=== PATIENT | male | born 1950 | race Caucasian/White ===

== ENCOUNTER 2019-12-18 03:36 | Emergency (ER) | payer MEDICARE, OTHER ==
[~2019-12-18] VITALS: Ht 180.3 cm; Wt 149.7 kg
[~2019-12-18 03:36] MED LIST: ALLERGY RELIEF PO; ALLO300 PO; AMLO5 PO; ASPI81CH PO; ATOR80 PO; Aspirin EC81 MG PO; CLOP75 PO; GLIP10ER PO; GLUCOPHAGE PO; Humulin N100 UNIT/1 SC; Hydrocodone-Ap1 EA20 PO; IBUP800 PO; LAMO100 PO; LAMOTRIGINE PO; LISI20 PO; LIVALO2 MG PO; LOSA50 PO; METFORMIN PO; METO25 PO; NOVOLIN N SC; OMEPRAZOLE MAGN20 MG PO; Omeprazole20 M1 PO; PANT40 PO; SILD50TA PO; SILDENAFIL PO; TAMS.4ER PO; [UNRECOGNIZED DRUG - OTHER] PO
[2019-12-18 04:09] LABS: BASOPHILS ABSOLUTE AUTO 0.07 K/mm3 (0.00-0.23); BASOPHILS PERCENT AUTO 1 % (0-2); EOSINOPHILS ABSOLUTE AUTO 0.22 K/mm3 (0.00-0.68); EOSINOPHILS PERCENT AUTO 3 % (0-6); Hematocrit 44.7 % (37.0-53.0); Hemoglobin 15.6 g/dL (13.5-17.5); IMMATURE GRAN ABSOLUTE AUTO 0.03 K/mm3 (0.00-0.10); IMMATURE GRAN PERCENT AUTO 0 % (0-1); LYMPHOCYTES ABSOLUTE AUTO 2.07 K/mm3 (0.84-5.20); LYMPHOCYTES PERCENT AUTO 31 % (21-46); MONOCYTES ABSOLUTE AUTO 0.67 K/mm3 (0.16-1.47); MONOCYTES PERCENT AUTO 10 % (4-13); Mean Corpuscular HGB 30.6 pg (26.0-34.0); Mean Corpuscular HGB Conc 34.9 g/dL (31.5-36.5); Mean Corpuscular Volume 88 fL (80-100); Mean Platelet Volume 10.5 fL (9.1-12.4); NEUTROPHILS ABSOLUTE AUTO 3.73 K/mm3 (1.96-9.15); NEUTROPHILS PERCENT AUTO 55 % (41-73); Platelet Count 217 K/mm3 (150-400); RDW Coefficient Variation 13.5 % (11.7-14.2); RDW Standard Deviation 43.4 fL (35.1-46.3); Red Blood Cell Count 5.09 M/mm3 (4.30-5.90); White Blood Cell Count 6.79 K/mm3 (4.00-11.30)
[2019-12-18 04:26] LABS: Alanine Aminotransfer (ALT/SGP 20 U/L (12-78); Albumin, Blood 3.3 g/dL (3.4-5.0); Alk Phos 119 U/L (50-136); Anion Gap 7 mmol/L (6-16); Aspartate Aminotrans (AST/SGOT 14 U/L (12-37); Bilirubin, Total 0.9 mg/dL (0.1-1.0); Blood Urea Nitrogen 11 mg/dL (8-24); Bun/Creatinine Ratio 17.5 (12.0-20.0); CO2, Blood 27 mmol/L (21-32); Calcium, Blood 8.7 mg/dL (8.5-10.1); Chloride, Blood 107 mmol/L (98-108); Creatinine, Blood 0.63 mg/dL (0.60-1.20); Globulin, Blood 3.4 g/dL (2.2-4.0); Glomerular Filtration Rate >60 (60-); Glucose, Blood 315 mg/dL (70-99); Potassium, Blood 4.1 mmol/L (3.5-5.5); Sodium, Blood 141 mmol/L (136-145); Total Protein, Blood 6.7 g/dL (6.4-8.2)
== END 2019-12-18 05:46 | disposition short-term general hospital (02) ==
LOC: ER 03:36
PROVIDERS: Emergency Medicine
DX: M97.12XA Periprosthetic fracture around internal prosthetic left knee joint, initial encounter (principal); I10 Essential (primary) hypertension; Z88.1 Allergy status to other antibiotic agents; Z88.8 Allergy status to other drugs, medicaments and biological substances; Z91.040 Latex allergy status; Z79.899 Other long term (current) drug therapy; Z79.82 Long term (current) use of aspirin; Z79.02 Long term (current) use of antithrombotics/antiplatelets; W18.30XA Fall on same level, unspecified, initial encounter
CPT/HCPCS: 29505; 51702; 71045; 73560-LT; 73706; 80053; 85025; 93005; 93010; 96361-59; 96374-59; 96375-59; 99285-25; J1170; J2250; J2405; J3010; J7030; Q9967

== ENCOUNTER 2020-02-24 13:10 | Emergency (ER) | payer MEDICARE, OTHER ==
[~2020-02-24] VITALS: Ht 180.3 cm; Wt 140.6 kg
[2020-02-24] MEDS ORDERED: PANT20 PO (13:26)
[2020-02-24] MEDS ORDERED: ATOR20 PO (13:27)
[2020-02-24] MEDS ORDERED: Roxicodone5 MG PO (17:08)
== END 2020-02-24 18:14 | disposition home or self-care (01) ==
LOC: ER 13:10
DX: M97.12XA Periprosthetic fracture around internal prosthetic left knee joint, initial encounter (principal); M79.605 Pain in left leg; I10 Essential (primary) hypertension; I25.2 Old myocardial infarction; M10.9 Gout, unspecified; Z91.040 Latex allergy status; Z88.8 Allergy status to other drugs, medicaments and biological substances; Z79.82 Long term (current) use of aspirin
CPT/HCPCS: 73552; 73562-LT; 93971; 99284-25

== ENCOUNTER 2020-05-25 09:28 | Emergency (ER) | payer MEDICARE, OTHER ==
[~2020-05-25] VITALS: Ht 180.3 cm; Wt 144.2 kg
[~2020-05-25 09:28] MED LIST changes: +ATOR20 PO; +PANT20 PO; +Roxicodone5 MG PO
[2020-05-25] MEDS ORDERED: METO25ER PO (10:56)
[2020-05-25] MEDS ORDERED: METF500 PO (10:57)
[2020-05-25 11:34] LABS: Influenza A Negative (NEGATIVE); Influenza B Negative (NEGATIVE)
[2020-05-25] MEDS ORDERED: AMOCLA875 PO (13:40)
[2020-05-25] MEDS ORDERED: AZIT250 PO (13:40)
== END 2020-05-25 14:14 | disposition home or self-care (01) ==
LOC: ER 09:28
PROVIDERS: Physician Assistant
DX: U07.1 COVID-19 (principal); J12.89 Other viral pneumonia; I10 Essential (primary) hypertension; I25.2 Old myocardial infarction; Z79.899 Other long term (current) drug therapy; Z79.02 Long term (current) use of antithrombotics/antiplatelets; Z79.82 Long term (current) use of aspirin; Z79.4 Long term (current) use of insulin; Z88.8 Allergy status to other drugs, medicaments and biological substances; Z91.040 Latex allergy status; Z88.1 Allergy status to other antibiotic agents
CPT/HCPCS: 71045; 87804; 96365; 99284-25; J0696; U0003

== ENCOUNTER 2020-06-25 10:42 | Emergency (ER) | payer MEDICARE, OTHER ==
[~2020-06-25] VITALS: Ht 180.3 cm; Wt 145.2 kg
[~2020-06-25 10:42] MED LIST changes: +AMOCLA875 PO; +AZIT250 PO; +METF500 PO; +METO25ER PO
[2020-06-25] MEDS ORDERED: CLINDAGEL75 ML TOP (11:15)
[2020-06-25 11:25] LABS: Calcium, Ionized (POC) 1.17 mmol/L (1.10-1.46); Chloride (POC) 98 mmol/L (98-108); Creatinine (POC) 0.7 mg/dL (0.8-1.3); Glucose (ISTAT POC) 264 mg/dL (70-99); Hemoglobin (POC) 14.6 g/dL (13.5-17.5); Potassium (POC) 3.3 mmol/L (3.5-5.5); Sodium (POC) 139 mmol/L (135-148); Total CO2 (POC) 24 mmol/L (21-32)
== END 2020-06-25 12:37 | disposition home or self-care (01) ==
LOC: ER 10:42
PROVIDERS: Emergency Medicine
DX: L08.1 Erythrasma (principal); I10 Essential (primary) hypertension; I25.2 Old myocardial infarction; Z91.040 Latex allergy status; Z88.8 Allergy status to other drugs, medicaments and biological substances; Z79.899 Other long term (current) drug therapy; Z79.02 Long term (current) use of antithrombotics/antiplatelets; Z79.82 Long term (current) use of aspirin
CPT/HCPCS: 71045; 80047; 85014; 99283-25

== ENCOUNTER → 2020-06-28 | Outpatient (CLI) | payer MEDICARE, OTHER ==
[~2020-06-28] MED LIST changes: +CEFP200 PO; +CLINDAGEL75 ML TOP; +CLINGEL TOP; +DOCU100 PO; +Flexeril5 MG PO; +HUMALOG KW200 UNIT/2 SC; +HUMULIN N100 UNIT/6 SC; +LEVO750 PO; +Pyridium100 MG PO; +Pyridium200 MG PO; +QUET25 PO; +SENN187 PO
[2020-06-28 18:39] LABS: Appearance, Urine Hazy (Clear); Bilirubin, Urine Neg (Neg); Blood, Urine 3+ (Neg); Color, Urine Yellow (P-Yellow); Glucose Qualitative, Urine 4+ (Neg); Ketones, Urine 1+ (Neg); Leukocyte Esterase, Urine 2+ (Neg); Nitrite, Urine Pos (Neg); Protein, Urine 2+ (Neg); Urobilinogen, Urine NORM (Normal)
[2020-06-28 18:58] LABS: Bacteria Many /hpf; Red Blood Cells, Urine 0-2 /hpf (0-2); Squamous Epithelial Cells Few /hpf (Few); White Blood Cells, Urine 50-100 /hpf (0-5)
== END | disposition home or self-care (01) ==
LOC: LAB SHORT 16:59 → LAB 16:59
PROVIDERS: Internal Medicine
DX: R31.9 Hematuria, unspecified (principal)
CPT/HCPCS: 81001; 87077; 87086; 87186

== ENCOUNTER 2020-07-01 21:17 | Emergency (ER) | payer MEDICARE, OTHER ==
[~2020-07-01] VITALS: Ht 180.3 cm; Wt 147.0 kg
[~2020-07-01 21:17] MED LIST changes: -CEFP200 PO; -CLINGEL TOP; -DOCU100 PO; -Flexeril5 MG PO; -HUMALOG KW200 UNIT/2 SC; -HUMULIN N100 UNIT/6 SC; -LEVO750 PO; -Pyridium100 MG PO; -Pyridium200 MG PO; -QUET25 PO; -SENN187 PO
[2020-07-01] MEDS ORDERED: LEVO750 PO (22:47)
[2020-07-01 22:54] LABS: Source, Urine Clean Catch
[2020-07-01 22:56] LABS: Bilirubin, Urine Neg (Neg); Blood, Urine 2+ (Neg); Glucose Qualitative, Urine 4+ (Neg); Ketones, Urine 2+ (Neg); Leukocyte Esterase, Urine 1+ (Neg); Nitrite, Urine Neg (Neg); Protein, Urine 1+ (Neg); Specific Gravity, Urine 1.015 (1.003-1.022); Urobilinogen, Urine NORM (Normal)
[2020-07-01 23:16] LABS: Color, Urine Yellow (P-Yellow)
[2020-07-01 23:17] LABS: Appearance, Urine Hazy (Clear)
[2020-07-01 23:22] LABS: White Blood Cells, Urine 50-100 /hpf (0-5)
[2020-07-01 23:23] LABS: Bacteria Mod /hpf; Squamous Epithelial Cells Few /hpf (Few)
[2020-07-02] MEDS ORDERED: Pyridium200 MG PO (00:58)
== END 2020-07-02 01:35 | disposition home or self-care (01) ==
LOC: ER 21:17
PROVIDERS: Physician Assistant
DX: N39.0 Urinary tract infection, site not specified (principal); R33.9 Retention of urine, unspecified; I10 Essential (primary) hypertension; I25.2 Old myocardial infarction; Z79.02 Long term (current) use of antithrombotics/antiplatelets; Z79.82 Long term (current) use of aspirin; Z79.4 Long term (current) use of insulin; Z88.8 Allergy status to other drugs, medicaments and biological substances; Z86.19 Personal history of other infectious and parasitic diseases; Z91.040 Latex allergy status; Z79.899 Other long term (current) drug therapy
CPT/HCPCS: 51798; 81001; 87086; 99283

== ENCOUNTER 2020-07-13 23:20 | Emergency (ER) | payer MEDICARE, OTHER ==
[~2020-07-13] VITALS: Ht 180.3 cm; Wt 145.2 kg
[~2020-07-13 23:20] MED LIST changes: +LEVO750 PO; +Pyridium200 MG PO
[2020-07-14 01:06] LABS: Source, Urine Catheter
[2020-07-14 01:11] LABS: Bilirubin, Urine Neg (Neg); Blood, Urine 5+ (Neg); Glucose Qualitative, Urine 4+ (Neg); Ketones, Urine Neg (Neg); Leukocyte Esterase, Urine Neg (Neg); Nitrite, Urine Neg (Neg); Protein, Urine Neg (Neg); Urobilinogen, Urine NORM (Normal)
[2020-07-14 01:22] LABS: Appearance, Urine Clear (Clear); Color, Urine Yellow (P-Yellow)
[2020-07-14 01:23] LABS: Bacteria Not Seen /hpf; Red Blood Cells, Urine 50-100 /hpf (0-2); Squamous Epithelial Cells Rare /hpf (Few); White Blood Cells, Urine Not Seen /hpf (0-5)
== END 2020-07-14 01:05 | disposition home or self-care (01) ==
LOC: ER 23:20
PROVIDERS: Physician Assistant
DX: N40.1 Benign prostatic hyperplasia with lower urinary tract symptoms (principal); R33.8 Other retention of urine; I10 Essential (primary) hypertension; I25.2 Old myocardial infarction; Z79.02 Long term (current) use of antithrombotics/antiplatelets; Z79.899 Other long term (current) drug therapy; Z79.84 Long term (current) use of oral hypoglycemic drugs; Z88.8 Allergy status to other drugs, medicaments and biological substances; Z91.040 Latex allergy status; Z88.1 Allergy status to other antibiotic agents; Z86.19 Personal history of other infectious and parasitic diseases
CPT/HCPCS: 51702; 81001; 99283-25

== ENCOUNTER 2020-07-23 10:25 | Emergency (ER) | payer MEDICARE, OTHER ==
[~2020-07-23] VITALS: Ht 180.3 cm; Wt 145.2 kg
[2020-07-23 11:05] LABS: BASOPHILS ABSOLUTE AUTO 0.05 K/mm3 (0.00-0.23); BASOPHILS PERCENT AUTO 1 % (0-2); EOSINOPHILS ABSOLUTE AUTO 0.15 K/mm3 (0.00-0.68); EOSINOPHILS PERCENT AUTO 2 % (0-6); Hematocrit 45.5 % (37.0-53.0); Hemoglobin 14.9 g/dL (13.5-17.5); IMMATURE GRAN ABSOLUTE AUTO 0.03 K/mm3 (0.00-0.10); IMMATURE GRAN PERCENT AUTO 0 % (0-1); LYMPHOCYTES ABSOLUTE AUTO 0.59 K/mm3 (0.84-5.20); LYMPHOCYTES PERCENT AUTO 7 % (21-46); MONOCYTES ABSOLUTE AUTO 0.54 K/mm3 (0.16-1.47); MONOCYTES PERCENT AUTO 7 % (4-13); Mean Corpuscular HGB 27.7 pg (26.0-34.0); Mean Corpuscular HGB Conc 32.7 g/dL (31.5-36.5); Mean Corpuscular Volume 85 fL (80-100); Mean Platelet Volume 10.8 fL (9.1-12.4); NEUTROPHILS ABSOLUTE AUTO 6.65 K/mm3 (1.96-9.15); NEUTROPHILS PERCENT AUTO 83 % (41-73); Platelet Count 161 K/mm3 (150-400); RDW Standard Deviation 49.2 fL (35.1-46.3); Red Blood Cell Count 5.37 M/mm3 (4.30-5.90); White Blood Cell Count 8.01 K/mm3 (4.00-11.30)
[2020-07-23 11:22] LABS: Alanine Aminotransfer (ALT/SGP 14 U/L (12-78); Albumin, Blood 3.3 g/dL (3.4-5.0); Albumin/Globulin Ratio 0.9 (0.8-1.8); Alk Phos 131 U/L (50-136); Anion Gap 4 mmol/L (6-16); Aspartate Aminotrans (AST/SGOT 11 U/L (12-37); Bilirubin, Total 2.5 mg/dL (0.1-1.0); Blood Urea Nitrogen 12 mg/dL (8-24); Bun/Creatinine Ratio 17.8 (12.0-20.0); CO2, Blood 31 mmol/L (21-32); Chloride, Blood 103 mmol/L (98-108); Creatinine, Blood 0.67 mg/dL (0.60-1.20); Globulin, Blood 3.7 g/dL (2.2-4.0); Glomerular Filtration Rate >60 (60-); Glucose, Blood 259 mg/dL (70-99); Magnesium, Blood 1.8 mg/dL (1.6-2.4); Potassium, Blood 3.7 mmol/L (3.5-5.5); Sodium, Blood 138 mmol/L (136-145); Troponin I <0.015 ng/mL (0.000-0.040)
[2020-07-23 11:24] LABS: Source, Urine Catheter
[2020-07-23 11:27] LABS: Bilirubin, Urine Neg (Neg); Blood, Urine 5+ (Neg); Glucose Qualitative, Urine 4+ (Neg); Ketones, Urine Neg (Neg); Leukocyte Esterase, Urine 3+ (Neg); Nitrite, Urine Neg (Neg); Protein, Urine 1+ (Neg); Urobilinogen, Urine NORM (Normal)
[2020-07-23 11:34] LABS: Appearance, Urine Hazy (Clear); Color, Urine Yellow (P-Yellow)
[2020-07-23 11:36] LABS: Bacteria Mod /hpf; Squamous Epithelial Cells Rare /hpf (Few)
[2020-07-23] MEDS ORDERED: CEFP200 PO (14:43)
[2020-07-23] MEDS ORDERED: Pyridium100 MG PO (15:27)
== END 2020-07-23 15:53 | disposition home or self-care (01) ==
LOC: ER 10:25
PROVIDERS: Emergency Medicine
DX: R07.9 Chest pain, unspecified (principal); R51.9 Headache, unspecified; N39.0 Urinary tract infection, site not specified; I10 Essential (primary) hypertension; G40.909 Epilepsy, unspecified, not intractable, without status epilepticus; Z86.19 Personal history of other infectious and parasitic diseases; Z79.02 Long term (current) use of antithrombotics/antiplatelets; Z79.82 Long term (current) use of aspirin; Z79.899 Other long term (current) drug therapy; Z79.4 Long term (current) use of insulin; Z88.8 Allergy status to other drugs, medicaments and biological substances; Z91.040 Latex allergy status
CPT/HCPCS: 36415; 51702; 71045; 71260; 80053; 81001; 83735; 84484; 85025; 85379; 87086; 93005; 93010; 96365-59; 99284-25; A9270; J0696; Q9967

== ENCOUNTER 2020-07-24 08:59 | Emergency (ER) | payer MEDICARE, OTHER ==
[~2020-07-24] VITALS: Ht 180.3 cm; Wt 145.2 kg
[~2020-07-24 08:59] MED LIST changes: +CEFP200 PO; +Pyridium100 MG PO
[2020-07-24 09:12] LABS: BASOPHILS ABSOLUTE AUTO 0.04 K/mm3 (0.00-0.23); BASOPHILS PERCENT AUTO 1 % (0-2); EOSINOPHILS ABSOLUTE AUTO 0.02 K/mm3 (0.00-0.68); EOSINOPHILS PERCENT AUTO 0 % (0-6); Hematocrit 42.9 % (37.0-53.0); Hemoglobin 13.9 g/dL (13.5-17.5); IMMATURE GRAN ABSOLUTE AUTO 0.02 K/mm3 (0.00-0.10); IMMATURE GRAN PERCENT AUTO 0 % (0-1); LYMPHOCYTES ABSOLUTE AUTO 0.75 K/mm3 (0.84-5.20); LYMPHOCYTES PERCENT AUTO 11 % (21-46); MONOCYTES ABSOLUTE AUTO 0.61 K/mm3 (0.16-1.47); MONOCYTES PERCENT AUTO 9 % (4-13); Mean Corpuscular HGB 27.5 pg (26.0-34.0); Mean Corpuscular HGB Conc 32.4 g/dL (31.5-36.5); Mean Corpuscular Volume 85 fL (80-100); Mean Platelet Volume 10.7 fL (9.1-12.4); NEUTROPHILS ABSOLUTE AUTO 5.48 K/mm3 (1.96-9.15); NEUTROPHILS PERCENT AUTO 79 % (41-73); Platelet Count 151 K/mm3 (150-400); RDW Coefficient Variation 16.1 % (11.7-14.2); Red Blood Cell Count 5.05 M/mm3 (4.30-5.90); White Blood Cell Count 6.92 K/mm3 (4.00-11.30)
[2020-07-24 09:16] LABS: Source, Urine Catheter
[2020-07-24 09:22] LABS: Bilirubin, Urine Neg (Neg); Blood, Urine 5+ (Neg); Glucose Qualitative, Urine 4+ (Neg); Ketones, Urine Neg (Neg); Leukocyte Esterase, Urine 1+ (Neg); Nitrite, Urine Neg (Neg); Protein, Urine 3+ (Neg); Urobilinogen, Urine NORM (Normal)
[2020-07-24 09:28] LABS: Appearance, Urine Hazy (Clear); Color, Urine Amber (P-Yellow)
[2020-07-24 09:28] LABS: Alanine Aminotransfer (ALT/SGP 16 U/L (12-78); Albumin, Blood 2.9 g/dL (3.4-5.0); Albumin/Globulin Ratio 0.8 (0.8-1.8); Alk Phos 114 U/L (50-136); Anion Gap 5 mmol/L (6-16); Aspartate Aminotrans (AST/SGOT 13 U/L (12-37); Bilirubin, Total 2.2 mg/dL (0.1-1.0); Blood Urea Nitrogen 12 mg/dL (8-24); CO2, Blood 30 mmol/L (21-32); Calcium, Blood 8.6 mg/dL (8.5-10.1); Chloride, Blood 104 mmol/L (98-108); Creatinine, Blood 0.71 mg/dL (0.60-1.20); Globulin, Blood 3.8 g/dL (2.2-4.0); Glomerular Filtration Rate >60 (60-); Glucose, Blood 294 mg/dL (70-99); Potassium, Blood 3.4 mmol/L (3.5-5.5); Sodium, Blood 139 mmol/L (136-145); Total Protein, Blood 6.7 g/dL (6.4-8.2)
[2020-07-24 09:31] LABS: Bacteria Few /hpf; Mucus Light (0-Heavy); Squamous Epithelial Cells Rare /hpf (Few)
[2020-07-24 09:32] LABS: Red Blood Cells, Urine 50-100 /hpf (0-2)
[2020-07-25] MEDS ORDERED: CLINGEL TOP (18:07)
== END 2020-07-24 12:04 | disposition home or self-care (01) ==
LOC: ER 08:59
PROVIDERS: Emergency Medicine
DX: R53.1 Weakness (principal); R51.9 Headache, unspecified; H53.129 Transient visual loss, unspecified eye; I10 Essential (primary) hypertension; I25.2 Old myocardial infarction; Z79.4 Long term (current) use of insulin; Z86.19 Personal history of other infectious and parasitic diseases; Z88.8 Allergy status to other drugs, medicaments and biological substances; Z88.1 Allergy status to other antibiotic agents; Z79.02 Long term (current) use of antithrombotics/antiplatelets; Z79.82 Long term (current) use of aspirin; Z91.040 Latex allergy status; Z79.899 Other long term (current) drug therapy
CPT/HCPCS: 70450; 80053; 81001; 85025; 87086; 93005; 93010; 96360; 96361; 99285-25; J7030

== ENCOUNTER 2020-07-25 05:22 | Inpatient (IN) | payer MEDICARE, OTHER ==
[~2020-07-25] VITALS: Ht 172.7 cm; Wt 135.3 kg
[2020-07-25 05:57] LABS: BASOPHILS ABSOLUTE AUTO 0.06 K/mm3 (0.00-0.23); BASOPHILS PERCENT AUTO 1 % (0-2); EOSINOPHILS PERCENT AUTO 6 % (0-6); Hematocrit 42.2 % (37.0-53.0); Hemoglobin 13.7 g/dL (13.5-17.5); IMMATURE GRAN ABSOLUTE AUTO 0.03 K/mm3 (0.00-0.10); IMMATURE GRAN PERCENT AUTO 1 % (0-1); LYMPHOCYTES ABSOLUTE AUTO 1.19 K/mm3 (0.84-5.20); LYMPHOCYTES PERCENT AUTO 23 % (21-46); MONOCYTES ABSOLUTE AUTO 0.69 K/mm3 (0.16-1.47); MONOCYTES PERCENT AUTO 14 % (4-13); Mean Corpuscular HGB 27.3 pg (26.0-34.0); Mean Corpuscular HGB Conc 32.5 g/dL (31.5-36.5); Mean Corpuscular Volume 84 fL (80-100); Mean Platelet Volume 10.8 fL (9.1-12.4); NEUTROPHILS ABSOLUTE AUTO 2.81 K/mm3 (1.96-9.15); NEUTROPHILS PERCENT AUTO 55 % (41-73); Platelet Count 154 K/mm3 (150-400); RDW Coefficient Variation 16.7 % (11.7-14.2); Red Blood Cell Count 5.02 M/mm3 (4.30-5.90); White Blood Cell Count 5.08 K/mm3 (4.00-11.30)
[2020-07-25 06:10] LABS: Anion Gap 5 mmol/L (6-16); Blood Urea Nitrogen 11 mg/dL (8-24); Bun/Creatinine Ratio 18.5 (12.0-20.0); CO2, Blood 31 mmol/L (21-32); Calcium, Blood 9.1 mg/dL (8.5-10.1); Chloride, Blood 104 mmol/L (98-108); Ethanol (Alcohol), Blood, Med <3 mg/dL; Glomerular Filtration Rate >60 (60-); Glucose, Blood 275 mg/dL (70-99); Potassium, Blood 3.4 mmol/L (3.5-5.5); Sodium, Blood 140 mmol/L (136-145)
[2020-07-25 06:12] LABS: U Amphetamine Screen Not Detected; U Barbituate Screen Not Detected; U Benzodiazapine Screen Not Detected; U Buprenorphine Screen Not Detected; U Cannabinoids Screen Not Detected; U Cocaine Screen Not Detected; U Methadone Screen Not Detected; U Methamphetamine Screen Not Detected; U Opiates Screen Not Detected; U Oxycodone Screen Not Detected; U Phencyclidine Screen Not Detected; U Propoxyphene Screen Not Detected
--- NOTE | 2020-07-25 10:53 | NUR ---
Echocardiogram completed.
[2020-07-25 14:53] LABS: Source, Urine Clean Catch
[2020-07-25 15:04] LABS: Appearance, Urine Hazy (Clear); Blood, Urine 5+ (Neg); Glucose Qualitative, Urine 4+ (Neg); Ketones, Urine Neg (Neg); Leukocyte Esterase, Urine 1+ (Neg); Nitrite, Urine Pos (Neg); Protein, Urine 2+ (Neg); Specific Gravity, Urine 1.015 (1.003-1.022); Urobilinogen, Urine 1+ (Normal)
[2020-07-25 15:20] LABS: Bilirubin, Urine 1+ (Neg); Color, Urine Orange (P-Yellow)
[2020-07-25 15:21] LABS: Bacteria Few /hpf; Hyaline Casts 0-2 /lpf (0-2); Red Blood Cells, Urine 50-100 /hpf (0-2); Squamous Epithelial Cells Few /hpf (Few); White Blood Cells, Urine 0-2 /hpf (0-5)
--- NOTE | 2020-07-25 15:36 | NUR ---
RECEIEVED REPORT FROM MARIANNE DANIEL RN, AT 0747. PATIENT ARRIVED TO ROOM 342 VIA STRETCHER AT 0805 AND THREE STAFF MEMBERS TRANSFERED PATIENT TO HOSPITAL BED. PATIENT NOTED TO BE -WEIGHT. WEAKNESS NOTICED T/O HOWEVER ESPECIALLY TO RLE. EQUAL HAND-CORK COMPOUNDER. PATIENT ABLE TO ANSWER ORIENTATION QUESTIONS APPROPRIATELY BUT POOR HISTORIAN; REFERED TO H&P TO COMPLETE ADMIT. SPEECH EVAL COMPLETED AND PATIENT PLACED ON PUREE DIET. MEDS WITH APPLESAUCE. PATIENT VERY LETHARGIC AND JUST WANTS TO REST IN ROOM. DAUGHTER BROUGHT IN CPAP FROM HOME. RT CAME UP TO SET IT UP WITH CONT BIOX. WILL CONTINUE TO MONITOR AND PROVIDE CARE NEEDED.
[2020-07-25] MEDS ORDERED: CLINGEL TOP (18:07)
--- NOTE | 2020-07-26 01:21 | NUR ---
CALL TO HOSPITALIST DR. SANDOVAL RE: PT REPORTING BENSON 02/18 NOT RESPONDING TO TYLENOL. NEW ORDER RECEIVED FOR FENTANYL 25-50MCG IV Q4HRS PRN. PT ALSO PRESENTING W/ MUSCLE TREMORING AND JERKING IN ALL EXTREMETIES, IT RESOLVED AFTER A FEW MINUTES. PT REMAINED ALERT AND RESPONDING AT BASELINE THROUGH THE EPISODE. PT REPORTING THIS ACTIVITY A SZ BUT WHEN ASKED STATES SEIZURES USUALLY PRESENT DIZZINESS.
--- NOTE | 2020-07-26 01:54 | NUR ---
CALL TO HOSPITALIST PER PHARMACIST REQUEST D/T PT LATEX ALLERGY AND POSSIBLE LATEX CONTAINED IN FENTANYL. DR. SANDOVAL STATES OK TO USE FENTANYL ANYWAY.
--- NOTE | 2020-07-26 02:43 | NUR ---
CHANGED MARTINEZ BAG, KAMERON NOTIFIED
--- NOTE | 2020-07-26 04:49 | NUR ---
SHIFT SUMMARY: VSS. AFEB. 02 95% ON RA. PT WEARING CPAP ALL NIGHT. PT SLEEPING AFTER RECEIVING FENTANYL FOR HEADACHE. REPORTS BENSON IN THE BASE OF NECK AND BEHIND EYES. REPORTS THAT THIS HEADACHE REOCCURS DAILY FOR THE PAST SEVERAL WEEKS. F/C PATENT AND DRAINING ORANGE CONCENTRATED URINE W/ FEW SMALL RED CLOTS. [id number]. ANSWERS QUESTIONS APPROPRIATELY. DIE ATTACHER/PUSHES/PULLS ALL EQUAL AND WEAK BUT THE LEFT SIDE IS SLOWER TO RESPOND. PT REPORTS GENERALIZED NUMBNESS BUT IS ABLE TO FEEL PRESSURE. REPORTS FEELING SORE ALL OVER FOR SEVERAL DAYS. SPEECH IS SLOW AND SLIGHTLY SLURRED BUT EASY TO UNDERSTAND. NO FURTHER REPORTS OF MUSCLE TREMORING/JERKING SO FAR TONIGHT. WILL CONT TO MONITOR.
[2020-07-26 06:30] LABS: BASOPHILS ABSOLUTE AUTO 0.04 K/mm3 (0.00-0.23); BASOPHILS PERCENT AUTO 1 % (0-2); EOSINOPHILS ABSOLUTE AUTO 0.36 K/mm3 (0.00-0.68); EOSINOPHILS PERCENT AUTO 7 % (0-6); Hemoglobin 13.3 g/dL (13.5-17.5); IMMATURE GRAN ABSOLUTE AUTO 0.02 K/mm3 (0.00-0.10); IMMATURE GRAN PERCENT AUTO 0 % (0-1); LYMPHOCYTES ABSOLUTE AUTO 1.33 K/mm3 (0.84-5.20); LYMPHOCYTES PERCENT AUTO 25 % (21-46); MONOCYTES ABSOLUTE AUTO 0.63 K/mm3 (0.16-1.47); MONOCYTES PERCENT AUTO 12 % (4-13); Mean Corpuscular HGB 27.5 pg (26.0-34.0); Mean Corpuscular HGB Conc 32.4 g/dL (31.5-36.5); Mean Corpuscular Volume 85 fL (80-100); Mean Platelet Volume 10.6 fL (9.1-12.4); NEUTROPHILS ABSOLUTE AUTO 2.86 K/mm3 (1.96-9.15); NEUTROPHILS PERCENT AUTO 55 % (41-73); Platelet Count 156 K/mm3 (150-400); RDW Coefficient Variation 16.8 % (11.7-14.2); RDW Standard Deviation 51.9 fL (35.1-46.3); Red Blood Cell Count 4.83 M/mm3 (4.30-5.90); White Blood Cell Count 5.24 K/mm3 (4.00-11.30)
[2020-07-26 06:43] LABS: Albumin, Blood 2.6 g/dL (3.4-5.0); Anion Gap 4 mmol/L (6-16); Blood Urea Nitrogen 11 mg/dL (8-24); Bun/Creatinine Ratio 19.6 (12.0-20.0); CO2, Blood 31 mmol/L (21-32); Calcium, Blood 8.7 mg/dL (8.5-10.1); Chloride, Blood 108 mmol/L (98-108); Creatinine, Blood 0.56 mg/dL (0.60-1.20); Glomerular Filtration Rate >60 (60-); Glucose, Blood 162 mg/dL (70-99); Phosphorus, Blood 3.6 mg/dL (2.5-4.9); Potassium, Blood 3.3 mmol/L (3.5-5.5); Sodium, Blood 143 mmol/L (136-145)
[2020-07-26 13:12] LABS: CHOL/HDL RATIO 4.3; Cholesterol 154 mg/dL (50-200); HDL Cholesterol 36 mg/dL (>39); LDL/HDL RATIO 2.3; Low Density Lipoprotein Chol 83 mg/dL (0-110); Triglycerides 176 mg/dL (30-160); Very Low Density Lipoprot Chol 35 mg/dL (6-32)
--- NOTE | 2020-07-26 16:20 | NUR ---
PATIENT IS PLEASANT AND COOPERATIVE WITH STAFF. EXTREME TREMORS NOTED. VERY WEAK TO LEFT SIDE OF BODY; ALMOST FLACCID. WEAKNESS ALSO PRESENT TO THE RIGHT SIDE HOWEVER THE PATIENT IS ABLE TO MAINTAIN SOME CONTROL. VITALS HAVE BEEN STABLE. SYMPTOMS SEEM TO BE WORSENING. CALLED TO CALL-IN CONSULT WITH DR BOX, NEUROLOGIST, HOWEVER HIS OFFICE INFORMED ME THAT HE IS NOT CONTINUOUS MINER OPERATOR HELPER. UPON FURTHER INVESTIGATION THERE IS NO NEUROLOGIST CONTINUOUS MINER OPERATOR HELPER FOR THE REMAINDER OF THE MONTH. CALLED DR KOENIG TO INFORM HER OF THIS AND LEFT MESSAGE ON CELL PHONE SINCE SHE DID NOT ANSWER. PATIENT TO HAVE AN EEG TOMORROW FIRST THING IN THE MORNING. PATIENT CONTINUES TO REST IN BED. MARTINEZ PATENT AND DRAINING TO GRAVITY. WILL CONTINUE TO MONITOR AND PROVIDE CARE NEEDED.
--- NOTE | 2020-07-26 17:55 | NUR ---
Initial spiritual care note: Trae states he is feeling 'down' because has has been so sick these past two months. He admits to feeling fearful and discouraged. I provided encouragement and assurance of care. Trae allowed me to pray for him. He then fell to a peaceful sleep. Trae will benefit from an understandable explaination of his illnesses and options going forward. I will continue to see Trae as case-load permits.
--- NOTE | 2020-07-26 19:42 | NUR ---
Awake. Speech somewhat slurred and needed redirected to where tafkasey ws in the room. HOB elevated. Alvarez draining. Call light in reach
--- NOTE | 2020-07-27 05:59 | NUR ---
SHIFT SUMMARY HAS BEEN RESTING QUIETLY WITH FEW INTERRUPTIONS. CONTINUOUS PULSE OX REMAINS ABOVE 90 % WITH CPAP IN USE. HOB ELEVATED FOR RESP COMFORT. INCONT OF FECES X 1, AND WAS CHANGED. CALL LIGHT IN REACH
--- NOTE | 2020-07-27 09:21 | NUR ---
Supportive Visit this AM Pt resting in bed upon arrival. Pt appears to struggle with his site looking in different directions during visit without direct eye contact with this RN. Pt reports significant intermittent pain in his left leg and describes it as cramping. Pt rates pain during occurance 9/10 pain. Listened as Pt expresses concern regarding family's ability to pick him up off the floor if he has another fall. Pt reports family is able to provide all other support he may require. Continued supportive listening. Spoke with PT Trae and discussed case. Trae will attempt range of motion to assist with cramping. Spoke with Bedside RN Mikaela and discussed case. Offered suggestion for heat to assist with cramping. Spoke with Dr Yancey and discussed case. Palliative Care will remain available.
--- NOTE | 2020-07-27 16:58 | NUR ---
SHIFT SUMMARY- PT SLEPT INTERMITENTLY THROUGHOUT THIS SHIFT. HE IS A/O, PLESANT AND COOPERATIVE. HIS SPEECH IS SOMEWHAT SLURRED AND HE IS SLOW TO RESPOND. PT AND OT WORKED WITH HIM THIS SHIFT AND HE TOLERATED WELL. ST EVALUATED HIM AND DETERMINED THAT HE WAS NOT SAFE FOR ORAL INTAKE AT THIS TIME. HE WAS MADE NPO OF NOW. HE IS RECIEVING IV CLINAMIX, AND MEDICATIONS WERE CHANGED TO ALTERNATE ROUTES. FAMILY VISITED AND WAS UPDATED. HE IS MAINTAING HIS OXYGEN SATURATIONS. HE USES THE CPAP DURING SLEEP. HIS MARTINEZ IS PATIENT AND DRAINING, URINE IS DARK IN COLOR. HE REQUIRED TWO DOSES OF PAIN MEDICATION THIS SHIFT WHICH WORKED WELL ON HIS PAIN. HIS BED IS IN THE LOW POSITION AND HIS CALL LIGHT IS WITHIN REACH.
--- NOTE | 2020-07-28 07:39 | NUR ---
office agent summary pt slept well overnight. medicated once for htn towards beginning of shift. this morning he complained of a headache. medicated with rectal tylenol and applied cool washcloth to forehead. npo status. report given to oncoming rn. call light within reach. bed alarm in place. compliant with cpap.
--- NOTE | 2020-07-29 18:20 | NUR ---
SHIFT SUMMARY PT A/O X3; PLEASANT AND COOPERATIVE WITH CARE. L SIDE DEFICIT AND NEGLECT, SIGHT DEFICIT ON THE L SIDE WELL. PT ON CPAP PRN DURING THE DAY. GOT UP IN THE CHAIR WITH P/T TODAY. DYSPHAGIA PRECAUTIONS IN PLACE AND THE PT REQUIRES FEEDING ASSISTANCE. TAKES MEDS WHOLE IN APPLESAUCE. TELEMETRY DC. NO ACUTE EPISODES THIS SHIFT. VSS; CURRENTLY UP IN A RECLINER WITH HIS CALL LIGHT IN REACH.
--- NOTE | 2020-07-30 06:27 | NUR ---
LANDS RESOURCE MANAGER SUMMARY Trae slept well once placed in bed using lift. He asked that he not be put in chair without feet being elevated and get frequent (every 3 hours or so )rest breaks from the seat. A&OX4, left side extremities currently flaccid. Patient is manuvering applesauce and pille well on the right side of his mouth as he also has a strong facial droop and loss of left visual field.
--- NOTE | 2020-07-30 17:11 | NUR ---
SHIFT SUMMARY PATIENT ALERT AND ORIENTED THROUGHOUT THIS SHIFT. PATIENT HAS GROSS LEFT SIDED MOVEMENT. PATIENT WORKED WITH PT THIS SHIFT. PATIENT WORKING TO IMPROVE LEVEL OF MOVEMENT THROUGHOUT THE AFTERNOON AFTER WORKING WITH PT. PATIENT AWARE OF HIS DEFICITS. PATIENT IS ACTIVELY WORKING TO OVERCOME HIS DEFICITS. PATIENT HAD A VISITOR IN THE ROOM THROUGHOUT THE AFTERNOON. PATIENT CURRENTLY SITTING UP IN THE RECLINER AWAITING DINNER.
--- NOTE | 2020-07-31 17:09 | NUR ---
SHIFT SUMMARY PATIENT ALERT AND ORIENTED THROUGHOUT THIS SHIFT. PATIENT DISPLAYS GREATER LEVEL OF GROSS MOVEMENT IN HIS LEFT EXTREMETIES. PATIENT'S DAUGHTER IN THE ROOM TO VISIT THIS AFTERNOON. PATIENT IN GOOD SPIRITS AND COOPERATIVE WITH CARE. PATIENT CURRENTLY LAYING IN BED LISTENING TO MUSIC.
--- NOTE | 2020-08-01 02:56 | NUR ---
PT HEARING VOICES, HAVING THOUGHTS OF SELF HARM/SUICIDE, NURSE NOTIFIED
--- NOTE | 2020-08-01 03:08 | NUR ---
SUICIDAL IDEATION AROUND 0240 PT EXPRESSED TO ME THAT HE WAS FEELING SUICIDAL. PT WAS TEARFUL, AND UPSET ABOUT HIS STROKE AND HIS RECOVERY. HE FEARS THAT HE WILL NOT REGAIN HIS SIGHT. PT ALSO EXPRESSED THAT HE WANTED TO ASK HIS WHERE THEY KEPT THE GUNS. SUICIDE REASSESSMENT PERFORMED AND PT SCORED HIGH RISK. TAVERN KEEPER GUSTAVO ALFREDO RN NOTIFIED OF PT SUICIDAL IDEATION. AT [address] SANDOVAL CALLED AND NOTIFIED OF PT STATEMENTS, AND SUICIDE REASSESSMENT SCORE. DR. SANDOVAL STATES THAT HE WILL COME UP TO EVALUATE PT TO DETERMINE NEXT COURSE OF ACTION. SUPPORT HAS BEEN PROVIDED TO [facility] AND HE IS AWARE OF CURRENT PLAN. PT BEING MONITORED CLOSELY.
--- NOTE | 2020-08-01 03:24 | NUR ---
SHIFT SUMMARY PT HAS RESTED FOR A GOOD PORTION OF THE SHIFT. AT THE BEGINNING OF THE SHIFT PT WAS IN GOOD SPIRITS AND REALLY MOTIVATED TO GET STRONGER WITH THE HELP OF PHYSICAL THERAPY. PT HAS BEEN LISTENING TO MUSIC MOST OF THE NIGHT ON HIS PHONE. HE HAS DENIED PAIN OR NEEDS AND VITALS HAVE BEEN STABLE. A/OX4. AROUND 0240 PT EXPRESSED TO ME THAT HE WAS HAVING SUICIDAL IDEATION R/T CURRENT ILLNESS. DR. SANDOVAL CALLED AND NOTIFED AND WE ARE WAITING FOR HIS EVALUATION AT THIS TIME. SUPPORT HAS BEEN PROVIDED TO TROY LACEY. BED IN LOWEST POSITION, CALL LIGHT WITHIN REACH.
--- NOTE | 2020-08-01 04:05 | NUR ---
SUICIDAL IDEATION AFTER NOTIFYING MD OF PT SUICIDAL IDEATION AT [address]300 DR. SANDOVAL STILL HAS NOT YET COME UP TO EVALUATE PT FOR SI PRECAUTIONS. HE STATES THAT HE WILL COME UP SOME POINT BEFORE THE END OF THE SHIFT BUT WOULD NOT GIVE ME A DEFINITE TIME, AND STATES THAT IF HE NEEDS TO MOVE HIM TO THE SCU FOR MONITORING TO JUST MOVE THE PT. SUPERVISOR POWDERED METAL GUSTAVO HAWTHORNE RN MADE AWARE OF CONVERSATION WITH DR. SANDOVAL AND IS SPEAKING WITH THE NURSING SALOONKEEPER REGARDING CONVERSATION. PT BEING MONITORED CLOSELY.
--- NOTE | 2020-08-01 04:13 | NUR ---
TRANSFER TO SCU-SUICIDAL IDEATION PT TO MOVE TO THE SCU FOR CLOSER MONITORING/SI PRECAUTIONS. EVALUATION BY MD STILL NEEDS TO BE DONE AT THIS TIME. NURSING PATIENT SAFETY COORDINATOR HAS SPOKEN WITH PROVIDER ABOUT OUR SI POLICY, DR. SANDERSON STILL WANTS TO MOVE PAITENT TO SCU AND WILL EVALUATE PAITENT LATER. WILL REPORT TO RECEIVING RN.
--- NOTE | 2020-08-01 05:15 | NUR ---
TRANSFER SCU RM 352 PT MOVED TO SCU ROOM 352 FOR SI PRECAUTIONS. REPORT GIVEN TO ANNA GRACE RN TO ASSUME CARE OF PT. PT BELONGINGS ARE IN PLACE. PT TRANSFERRED WITHOUT EVENT.
--- NOTE | 2020-08-01 05:55 | NUR ---
PT ARRIVED IN [facility] ROOM 352 AT 0515. AAOX3. ACCOMPANIED BY 1:1 SITTER. PT IS NOW ON CAMERA MONITORING. DENYING SUICIDAL IDEATION AT THIS TIME.
--- NOTE | 2020-08-01 06:31 | NUR ---
CALL PLACED TO PT SPOUSE, PAUL TO INFORM HER OF PT ROOM CHANGE. MESSAGE LEFT.
--- NOTE | 2020-08-01 17:13 | NUR ---
MICHELLE Gaytan/Amalia AT 1710, 08/01/20
--- NOTE | 2020-08-01 21:33 | NUR ---
ASSUMED CARE. FLOR IS AOX3, COOPERATIVE. LEFT FACIAL DROOP, SPEECH A SLIGHT SLURRING TO IT BUT HE IS ABLE TO GET HIS NEEDS KNOWN. ABLE TO LIFT LEFT HAND AND ARM UP WITH SOME STRUGGLE BUT HE DID IT. SAME WITH HIS LEFT LEG. STATION GATEMAN IS WEAK BUT HE IS ABLE TO CLOSE HIS HAND. STATES HE DOES GET OCCATIONAL PAIN FROM BACK OF HIS RIGHT SIDE OF HEAD DOWN TO THE NECK OCCATIONALLY. VISION DISTRUBANCE NOTED ON THE LEFT, ENCOURAGED HIM TO CONTINUE TO LOOK LEFT, HE IS GOOD AT FOLLOWING DIRECTIONS. ADMINISTERED MEDS, REDNESS IN GROIN IMPROVING, REDNESS IS CREASE OF BUTTOCKS. POWDER WAS APPLIED. CATHETER REMOVED EARLIER, WILL MONITOR WITH BLADDER SCAN TO SEE IF HE IS ABLE TO URINATE. LUNG SOUNDS ARE DIMINISHED. ASSISTED IN GETTING HIM BACK TO BED, LIFT PATIENT. NO NEEDS NOTED. CALL LIGHT IN REACH.
--- NOTE | 2020-08-02 05:26 | NUR ---
SHIFT SUMMARY: AOX3. SLIGHT SLURRED SPEECH. LEFT FACIAL DROOP, LEFT PERIPHERAL VISION DISTURBANCES, ENCOURAGED TURNING TO THE LEFT. ABLE TO LIFT LEFT ARM WITH SOME STRUGGLE BUT HE DID GET IT UP TO HIS SHOULDER. ABLE TO LIFT LEG OFF RECLEINER ONLY. STILL HAS SOME WEAKNESS. SAUSAGE STUFFER IS MILD BUT ABLE TO CLOSE FINGERS. MEDS IN APPLESAUCE. MARTINEZ WAS REMOVED YESTERDAY AT 1710, FIRST BLADDER SCAN WAS 243. JUST SCANNED HIM AGAIN HE WAS 389. HE VOIDED 100CC DARK ORANGE URINE. USED CPAP ALL NIGHT. NO OTHER CHANGES TO REPORT. CALL LIGHT REMAINS IN REACH. PLAN IS FOR SNF.
--- NOTE | 2020-08-02 13:00 | NUR ---
SPOKE TO COOK RELIEF ABOUT THE PT LACK OF BM. RECIEVED A CALL OK TO ADD BOWEL CARE MEDS FOR THIS PT PER DR TEJADA. ORDER PLACED IN ORDER MANAGMENT. PROVIDED PT WITH A PRUNE JUICE/APPLE JUICE/BUTTER MIX. HE DRANK IT IN 10-15 MINUTES, NO RESULT YET. WILL CTM.
--- NOTE | 2020-08-02 15:14 | NUR ---
Suicide safety plan completed. Pt reports I dont even know why those thoughts popped in my head". He reports briefly having SI thoughts after admit due to loss of some physical functions at the time. "I asked for helpt and got it". Pt denies any intent or thoughts of self harm. Pt was cooperative and did not want any follow up counseling for mental health at this time. Myra Wallis
--- NOTE | 2020-08-02 18:01 | NUR ---
SHIFT SUMMARY- PT ALERT AND ORIENTED X3. PAIN SEEMS WELL MANAGED HE HAS DENIED THE NEED FOR ANY PAIN MEDICINE T/O THE SHIFT. PT IS VERY MOTIVATED TO TRY TO IMPROVE. HE HAS BEEN DOING EXERCISES T/O THE DAY ON HIS OWN, HE WORKED WITH PT AND OT HE WAS UP INTO THE SHOWER THIS MORNING WITH THE LIFT. UP INTO THE RECLINER FOR MEALS. PLAN IS FOR THE PT TO DISCHARGE TO [facility] TOM[facility] MORNING AT 0900. COVID TEST MUST BE DONE AFTER 2400 TONIGHT. WILL PASS ON TO NIGHT RN. PT HAS HAD 2 BROWN COWS AND MILK OF MAG WITH NO RESULT. LAST DOCUMENTED BM WAS 07-28-2020. WILL PASS ON TO NIGHT RN TO TRY SUPPOSITORY IF NEEDED. PT NOW HAS SCHEDULED BOWEL MEDS WELL. PT IS VERY PLEASENT AND ACCEPTING OF ALL CARES T/O THE DAY.
--- NOTE | 2020-08-02 19:55 | NUR ---
ASSUMED CARE. AOX3, TURNED HIS HEAD TO THE LEFT WHEN I WALKED INTO THE ROOM. STATES HE IS GETTING HIS VISION BACK HE IS ABLE TO SEE MY FACE BUT HE STILL TENDS TO NEGLECT THE LEFT. ABLE TO LIFT ARM BETTER TONIGHT UP BEHIND THE HEAD. FOLDER MACHINE IS IMPROVING. LEFT LEG STILL IS WEAK BUT HE IS TRYING TO IMPROVE IT. JUST HAD MED. BM, PASSING LARGE AMOUNTS OF FLATUS. DENIES ANY PAIN. URINATING WELL. ABD VERY ROUND AND DISTENDED STATES NORM. DENIES ANY NEEDS AT THIS TIME, WILL CONTINUE TO MONITOR. CALL LIGHT IS IN REACH.
--- NOTE | 2020-08-03 05:49 | NUR ---
SHIFT SUMMARY: AOX3, FOLLOWS DIRECTION. IMPROVEMENT IN SIGHT HE STATES, ABLE TO SEE BUT STILL HAS LEFT SIDE NEGLECT, IS TURNING HIS HEAD LEFT MORE OFTEN. ABLE TO LIFT LEFT ARM UP BEHIND HEAD. LEFT RESCUE WORKER STILL WEAKER THEN RIGHT BUT IMPROVING. LLE ONLY ABLE TO LIFT FEW INCHES OFF THE BED. LUNG SOUNDS DIMINISHED IN BASES, CONTINUE TO HAVE RUNNING NOSE AND THEN STUFFY AFTER USING THE CPAP. REDNESS IN GROIN IS IMPROVING. NO PAIN NOTED. NO HEADACHES. DID WELL ON USING CALL LIGHT AND VOIDING THIS SHIFT. BM AT START OF SHIFT. NO OTHER CHANGES TO REPORT THIS SHIFT, CALL LIGHT HAS REMAINED IN REACH.
[2020-08-03 07:04] LABS: Influenza A, PCR Negative (NEGATIVE); Influenza B, PCR Negative (NEGATIVE); Resp Syncytial Virus, PCR Negative (NEGATIVE); SARS-Cov-2 (COVID-19) PCR, MMC Positive (NEGATIVE)
--- NOTE | 2020-08-03 07:44 | NUR ---
ASSUMED CARE OF PT- REPORT COMPLETED WITH NIGHT RN. COVID TEST COLLECTED, RESULT OF POSSITIVE RECIEVED, INFORMED NURSING PREVENTATIVE MAINTENANCE TECHNICIAN, DR TEJADA AND FLOOR BROKER. THEY SPOKE TO INFECTION CONTROL. ISOLATION NOT REQUIRED AT THIS TIME THE PT IS PAST HIS WINDOW OF CONTAGIOUSNESS. CLOSED THE DOOR PT IS ON CPAP AND REQUESTED CAMERAS FOR FALL RISK. WILL SPEAK TO DISCHARGE PLANNING ABOUT THE RESULTS WHEN THEY ARRIVE AT 0800. SINCE NO ISOLATION IS NEEDED THE PT WILL NOT BE TRANSFERED TO THE COVID UNIT AT THIS TIME.
[2020-08-03] MEDS ORDERED: ALLO300 PO (09:26)
[2020-08-03] MEDS ORDERED: CLOP75 PO (09:26)
[2020-08-03] MEDS ORDERED: AMLO5 PO (09:26)
[2020-08-03] MEDS ORDERED: HUMALOG KW200 UNIT/2 SC (09:27)
[2020-08-03] MEDS ORDERED: Flexeril5 MG PO (09:27)
[2020-08-03] MEDS ORDERED: DOCU100 PO (09:27)
[2020-08-03] MEDS ORDERED: LOSA50 PO (09:34)
[2020-08-03] MEDS ORDERED: LAMO100 PO (09:34)
[2020-08-03] MEDS ORDERED: HUMULIN N100 UNIT/6 SC (09:34)
[2020-08-03] MEDS ORDERED: QUET25 PO (09:35)
[2020-08-03] MEDS ORDERED: METO25ER PO (09:35)
[2020-08-03] MEDS ORDERED: SENN187 PO (09:35)
--- NOTE | 2020-08-03 10:13 | NUR ---
DISCHARGE NOTE- [facility] CALLED B[facility] TO GIVE TELEPHONE REPORT. NO FURTHER QUESTIONS AT THE TIME OF REPORT, CONTACT INFO PROVIDED IN THE EVENT QUESTION SHOULD ARRISE. PT IV WAS DC'D PRIOR TO DISCHARGE, PT WAS TAKEN TO [facility] VIA W/C TRANSPORT PT TOOK HIS HOME CPAP, CELL PHONE AND ALL OTHER PERSONAL BELONGINGS HE HAD WITH HIM AT THE TIME OF DISCHARGE. CALLED PT SPOUSE AND NOTIFIED HER OF THE [facility] TODAY SHE IS AWARE.
== END 2020-08-03 10:04 | DRG 65 ==
LOC: ER 05:22 → MEDS 06:46
PROVIDERS: Family Medicine; Internal Medicine; Student in an Organized Health Care Education/Training Program; ADMIT Internal Medicine
DX: I63.531 Cerebral infarction due to unspecified occlusion or stenosis of right posterior cerebral artery (principal); G81.94 Hemiplegia, unspecified affecting left nondominant side; E11.65 Type 2 diabetes mellitus with hyperglycemia; E78.5 Hyperlipidemia, unspecified; E86.0 Dehydration; Z20.828 Contact with and (suspected) exposure to other viral communicable diseases; E87.6 Hypokalemia; G40.909 Epilepsy, unspecified, not intractable, without status epilepticus; G47.33 Obstructive sleep apnea (adult) (pediatric); I25.2 Old myocardial infarction; K21.9 Gastro-esophageal reflux disease without esophagitis; N40.1 Benign prostatic hyperplasia with lower urinary tract symptoms; R29.810 Facial weakness; R47.01 Aphasia; R27.0 Ataxia, unspecified; M10.9 Gout, unspecified; R47.81 Slurred speech
CPT/HCPCS: 0241U; 36415; 51702; 70450; 70551; 71045; 71260; 80048; 80053; 80061; 81001; 82947; 83735; 84100; 84484; 85025; 85379; 87086; 92526; 92610; 93005; 93010; 93306; 93880; 94762; 95819; 96360; 96361; 96365-59; 96374; 96375; 97110; 97112; 97129; 97162; 97166; 97530; 97535; 99284-25; 99285-25; A9270; A9270-GY; C9113; G0480; J0360; J0696; J1650; J1815; J2405; J3010; J3480; J7030; Q9967

== ENCOUNTER 2020-10-02 16:18 | Emergency (ER) | payer MEDICARE, OTHER ==
[~2020-10-02] VITALS: Ht 182.9 cm; Wt 98.0 kg
[~2020-10-02 16:18] MED LIST changes: -ASPI81CH PO; +CLINGEL TOP; +DOCU100 PO; +Flexeril5 MG PO; +HUMALOG KW200 UNIT/2 SC; +HUMULIN N100 UNIT/6 SC; -TAMS.4ER PO
[2020-10-02 17:07] LABS: BASOPHILS ABSOLUTE AUTO 0.07 K/mm3 (0.00-0.23); BASOPHILS PERCENT AUTO 1 % (0-2); EOSINOPHILS ABSOLUTE AUTO 0.38 K/mm3 (0.00-0.68); EOSINOPHILS PERCENT AUTO 4 % (0-6); Hematocrit 37.4 % (37.0-53.0); Hemoglobin 12.4 g/dL (13.5-17.5); IMMATURE GRAN ABSOLUTE AUTO 0.03 K/mm3 (0.00-0.10); IMMATURE GRAN PERCENT AUTO 0 % (0-1); LYMPHOCYTES PERCENT AUTO 15 % (21-46); MONOCYTES ABSOLUTE AUTO 0.74 K/mm3 (0.16-1.47); MONOCYTES PERCENT AUTO 8 % (4-13); Mean Corpuscular HGB 30.2 pg (26.0-34.0); Mean Corpuscular HGB Conc 33.2 g/dL (31.5-36.5); Mean Corpuscular Volume 91 fL (80-100); Mean Platelet Volume 9.7 fL (9.1-12.4); NEUTROPHILS ABSOLUTE AUTO 6.59 K/mm3 (1.96-9.15); NEUTROPHILS PERCENT AUTO 72 % (41-73); Platelet Count 268 K/mm3 (150-400); RDW Coefficient Variation 18.9 % (11.7-14.2); Red Blood Cell Count 4.11 M/mm3 (4.30-5.90); White Blood Cell Count 9.21 K/mm3 (4.00-11.30)
[2020-10-02 17:19] LABS: International Normalized Ratio 0.97; Prothrombin Time Results 10.4 Sec (9.7-11.5)
[2020-10-02 17:26] LABS: Alanine Aminotransfer (ALT/SGP 20 U/L (12-78); Albumin, Blood 3.2 g/dL (3.4-5.0); Alk Phos 120 U/L (50-136); Anion Gap 4 mmol/L (6-16); Aspartate Aminotrans (AST/SGOT 13 U/L (12-37); Bilirubin, Total 0.8 mg/dL (0.1-1.0); Blood Urea Nitrogen 14 mg/dL (8-24); CO2, Blood 29 mmol/L (21-32); Calcium, Blood 8.8 mg/dL (8.5-10.1); Chloride, Blood 109 mmol/L (98-108); Creatinine, Blood 0.58 mg/dL (0.60-1.20); Globulin, Blood 3.2 g/dL (2.2-4.0); Glomerular Filtration Rate >60 (60-); Glucose, Blood 132 mg/dL (70-99); Sodium, Blood 142 mmol/L (136-145); Total Protein, Blood 6.4 g/dL (6.4-8.2); Troponin I <0.015 ng/mL (0.000-0.040)
[2020-10-02] MEDS ORDERED: TAMS.4ER PO (18:22)
[2020-10-02] MEDS ORDERED: Aspir 8181 MG PO (18:22)
[2020-10-02] MEDS ORDERED: CLOP75 PO (18:22)
[2020-10-02] MEDS ORDERED: ALLO300 PO (18:22)
[2020-10-02] MEDS ORDERED: METO25ER PO (18:23)
[2020-10-02] MEDS ORDERED: LOSA50 PO (18:23)
[2020-10-02] MEDS ORDERED: SENN187 PO (18:24)
[2020-10-02] MEDS ORDERED: Seroquel Xr50 MG PO (18:24)
[2020-10-02] MEDS ORDERED: LAMO25 PO (18:25)
[2020-10-02] MEDS ORDERED: INSULANPEN SC (18:26)
[2020-10-02] MEDS ORDERED: ERGO50000 PO (18:27)
[2020-10-02] MEDS ORDERED: JARDIANCE10 MG PO (18:27)
[2020-10-02] MEDS ORDERED: GABA100 PO (18:28)
[2020-10-02] MEDS ORDERED: Flonase 0.05% N16 GM (18:28)
[2020-10-02] MEDS ORDERED: OMEP20ER PO (18:29)
[2020-10-02] MEDS ORDERED: VITAMIN B-625 MG PO (18:29)
[2020-10-02] MEDS ORDERED: AF130 GM TOP (18:30)
[2020-10-02] MEDS ORDERED: MIRALAX17 G3 PO (18:30)
[2020-10-02] MEDS ORDERED: ZOLOFT25 MG PO (18:31)
[2020-10-02] MEDS ORDERED: ATOR80 PO (18:32)
[2020-10-02] MEDS ORDERED: ACET500 PO (18:33)
[2020-10-02] MEDS ORDERED: ALUM-MAG HYDROX30 ML PO (18:34)
[2020-10-02] MEDS ORDERED: DULCOLAX5 MG PO (18:34)
[2020-10-02] MEDS ORDERED: Glucose Gel38 GM PO (18:36)
== END 2020-10-02 23:57 ==
LOC: ER 16:18
PROVIDERS: Emergency Medicine
DX: S01.312A Laceration without foreign body of left ear, initial encounter (principal); R60.0 Localized edema; I10 Essential (primary) hypertension; E11.9 Type 2 diabetes mellitus without complications; K21.9 Gastro-esophageal reflux disease without esophagitis; Z91.040 Latex allergy status; Z88.8 Allergy status to other drugs, medicaments and biological substances; Z88.1 Allergy status to other antibiotic agents; Z79.4 Long term (current) use of insulin; Z79.02 Long term (current) use of antithrombotics/antiplatelets; W05.0XXA Fall from non-moving wheelchair, initial encounter
CPT/HCPCS: 70450; 71045; 72125; 80053; 84484; 85025; 85610; 85730; 93005; 93010; 99285-25

== ENCOUNTER → 2020-12-05 | Outpatient (CLI) | payer MEDICARE, OTHER ==
[~2020-12-05] MED LIST changes: +ACET500 PO; +AF130 GM TOP; +ALUM-MAG HYDROX30 ML PO; +Aspir 8181 MG PO; +DULCOLAX5 MG PO; +ERGO50000 PO; +Flonase 0.05% N16 GM; +GABA100 PO; +Glucose Gel38 GM PO; +INSULANPEN SC; +JARDIANCE10 MG PO; +LAMO25 PO; +MIRALAX17 G3 PO; +OMEP20ER PO; +SENN187 PO; +Seroquel Xr50 MG PO; +TAMS.4ER PO; +VITAMIN B-625 MG PO; +ZOLOFT25 MG PO
[2020-12-05 12:25] LABS: Hematocrit 41.5 % (37.0-53.0); Hemoglobin 14.7 g/dL (13.5-17.5); Mean Corpuscular HGB 31.5 pg (26.0-34.0); Mean Corpuscular HGB Conc 35.4 g/dL (31.5-36.5); Mean Corpuscular Volume 89 fL (80-100); Mean Platelet Volume 9.3 fL (9.1-12.4); Platelet Count 325 K/mm3 (150-400); RDW Standard Deviation 44.5 fL (35.1-46.3); Red Blood Cell Count 4.66 M/mm3 (4.30-5.90); White Blood Cell Count 9.58 K/mm3 (4.00-11.30)
== END | disposition home or self-care (01) ==
LOC: LAB RH 08:30 → EDSTATUS 09:52
PROVIDERS: Internal Medicine
DX: E78.5 Hyperlipidemia, unspecified (principal); E11.8 Type 2 diabetes mellitus with unspecified complications
CPT/HCPCS: 85027